=== PATIENT | female | born 1985 | race Native Hawaiian/Other Pacific Islander ===

== ENCOUNTER 2024-09-02 11:15 | Day surgery (SDC) | payer BC, SELFPAY ==
--- NOTE | 2024-09-02 | PATH_ITS ---
[facility] Accession Number: [id number] No. of containers..04 Tissue . 01 Material submitted: . PART A: duodenum - DUODENUM PART B: stomach - STOMACH PART C: esophagus - ESOPHAGUS PART D: esophagus - ESOPHAGEAL POLYP . 01 Diagnosis: Part A: DUODENUM: Duodenal mucosa with no diagnostic alterations. No active inflammation and no evidence of celiac disease. . Part B: STOMACH: Gastric mucosa with mild chronic inflammation. No Helicobacter organisms identified. No intestinal metaplasia, dysplasia, or malignancy identified. . Part C: ESOPHAGUS: Squamous mucosa with mild changes consistent with reflux. No evidence of eosinophilic esophagitis. . Part D: ESOPHAGEAL POLYP: Benign squamous papilloma, inflamed. No dysplasia or malignancy identified. [facility] 09/08/2024 1544 Local . 01 Electronically signed: . Sherif Kerr MD, Pathologist NPI- [id number] . 01 Gross description: . Part A: DUODENUM: Received in formalin are 3 fragment(s) of mathur, soft tissue measuring 0.1 x 0.1 x 0.1 cm to 0.3 x 0.3 x 0.2 cm submitted entirely in 1 cassette(s) . Part B: STOMACH: Received in formalin are 3 fragment(s) of mathur, soft tissue measuring 0.1 x 0.1 x 0.1 cm to 0.6 x 0.3 x 0.2 cm submitted entirely in 1 cassette(s) . Part C: ESOPHAGUS: Received in formalin are 2 fragment(s) of mathur, soft tissue measuring 0.2 x 0.2 x 0.1 cm to 0.3 x 0.2 x 0.1 cm submitted entirely in 1 cassette(s) . Part D: ESOPHAGEAL POLYP: Received in formalin are 2 fragment(s) of mathur, soft tissue measuring 0.2 x 0.2 x 0.1 cm to 0.3 x 0.3 x 0.2 cm submitted entirely in 1 cassette(s) /LEO 09/08/2024 1544 Local . 01 Microscopic: . Part B: STOMACH: An immunohistochemical stain was performed to evaluate for Helicobacter organisms and is negative. The control stains appropriately. * This test was developed and the performance characteristics were validated by [employer]. It has not been cleared or approved by the Food and Drug Administration. . Part D: ESOPHAGEAL POLYP: Given the presence of active neutrophilic inflammation among the polyp, an ABPAS stain was performed to evaluate for fungal organisms and is negative. The control stains appropriately. . 01 Pathologist provided ICD-10: D13.0, K21.00, K29.50 . 01 CPT . 224259, 679012, [id number], [id number], [id number], [id number] Specimen Comment: A courtesy copy of this report has been sent to [phone] Performed at: [address] [address], [place], [place] [id number] MD Sherif Kerr MD Phone: [phone]
[2024-09-02 12:00] VITALS: BP 132/85; PULSE 78; RESP 20; TEMP 36.8; O2SAT 99
[2024-09-02] MEDS: LACTATED RINGERS 1,000 ML 42 ML IV (12:14)
--- NOTE | 2024-09-02 12:40 | PM.HP.1 ---
History of Present Illness History of Present Illness Date Patient Seen: 09/02/24 Chief complaint: EGD Narrative: Left upper quadrant pain, abnormal CT scan, GE reflux PFSH Social History Smoking Status: Current some day smoker alcohol intake: never Meds Home Medications and Allergies Home Medications Medication Instructions Recorded Confirmed Type polyethylene glycol 8.5 g PO Q OTHER DAY 09/02/24 09/02/24 History Allergies Allergy/AdvReac Type Severity Reaction Status Date / Time No Known Drug Allergies Allergy Verified 09/02/24 12:09 Exam Vital Signs (past 8 hours): - 09/02/24 12:00 Temperature 98.3 F Pulse Rate 78 Respiratory Rate 20 Blood Pressure 132/85 Pulse Oximetry 99 Oxygen Delivery Method Room Air Oxygen Delivery Method Room Air Narrative Exam Narrative: Oropharynx free of lesions Chest clear to auscultation percussion Cardiac exam reveals no S3 or murmur Assessment & Plan Assessment & Plan narrative: Left upper quadrant pain abnormal CT scan and reflux. Need for EGD to to help define any overt pathologic process. Risks, benefits, alternatives have been explained. Time-Based Coding :: [TOTAL MINUTES] spent with patient and on the chart (including review of chart, obtaining history, exam, reviewing outside data, placing orders, documenting exam and treatment plan, and counseling patient) on [DATE].
--- NOTE | 2024-09-02 12:41 | PM.OP.EGD ---
Operative Date/Time/Diagnoses Date of procedure: 09/02/24 Pre-op diagnosis: See indication and findings Procedure & Clinicians Indications: EGD left upper quadrant pain, abnormal CT, GE reflux Surgeon: Nate Mark Procedure Notes Procedure in detail: After informed consent was obtained the patient was placed in left lateral decubitus position. The upper endoscope was placed into the oropharynx and with the patient's help swelled into the esophagus. The esophagus stomach and duodenum carefully examined. On withdrawal, retroflexed view the GE junction was performed. The scope was removed. The patient tolerated procedure well. Blood loss none Complications none Sedation mac Findings 1. In mid esophagus at approximately 30 cm was a 6 mm semi pedunculated polyp. This was biopsied x2 and removed completely 2. Remainder of esophagus normal biopsies taken to rule out eosinophilic esophagitis 3. Essentially normal stomach biopsies taken to rule out Helicobacter 4. Slight inflammation of the duodenal wall without hermann erosion or ulceration. Biopsies taken Patient should follow-up with akash Light for further direction. We will be in touch regarding biopsies. 4.
[2024-09-02 13:03] VITALS: BP 118/73; PULSE 88; RESP 16; TEMP 36.6; O2SAT 96
[2024-09-02 13:09] VITALS: BP 114/82; PULSE 80; RESP 12; TEMP 36.6; O2SAT 98
== END 2024-09-02 13:33 | disposition home or self-care (01) ==
PROVIDERS: PCP Physician Assistant Medical; Referring Provider Internal Medicine Gastroenterology; Visit Provider Internal Medicine Gastroenterology
PROC: 0DJ08ZZ Inspection of Upper Intestinal Tract, Via Natural or Artificial Opening Endoscopic (ICD-10-PCS; CPT 43235; principal; 2024-09-02 12:30)
DX: K21.9 Gastro-esophageal reflux disease without esophagitis (principal); K29.50 Unspecified chronic gastritis without bleeding; D13.0 Benign neoplasm of esophagus
CPT/HCPCS: 43239; J2704